=== PATIENT | male | born 1970 | race Caucasian/White ===

== ENCOUNTER → 2017-09-23 | Outpatient (CLI) | payer BC, OTHER ==
[~2017-09-23] MED LIST: ATEN25 PO; CYCL10 PO; Cialis20 MG; DICL25ER PO; Excedrin Extra1 EACH; HYDACE10B PO; HYDACE5 PO; HYDACE7.5; HYDR-86; NAPR375; NAPR500 PO; OXYACE5T PO; OXYC5 PO; PROM25 PO; PROPECIA; PSEU120ER PO; Propecia1 MG PO; RXHYDMOR2 PO; RXOXYACE PO; TAMS.4ER PO; TRAM50 PO; Valtrex1000 MG PO; ZOLP10 PO; ZOLP5 PO; [UNRECOGNIZED DRUG - OTHER] PO
[2017-09-23 14:40] LABS: Influenza A Negative (NEGATIVE); Influenza B Positive (NEGATIVE)
== END | disposition home or self-care (01) ==
LOC: LAB 13:29
PROVIDERS: Hospitalist
DX: R05 Cough (principal)
CPT/HCPCS: 87804

== ENCOUNTER → 2017-11-01 | Outpatient (CLI) | payer BC, OTHER | END | disposition home or self-care (01) | LOC: PLD 07:44 → LAB SHORT 07:44 | DX: D22.5 Melanocytic nevi of trunk (principal) | CPT/HCPCS: 88305 ==

== ENCOUNTER 2018-10-24 12:50 | Observation (INO) | payer BC, OTHER ==
[~2018-10-24] VITALS: Ht 180.3 cm; Wt 81.7 kg
[2018-10-24 13:26] LABS: PCO2 Arterial 32 mmHg (35-45); PO2 Arterial 339 mmHg (80-100); pH Blood Arterial 7.49 (7.35-7.45)
--- NOTE | 2018-10-24 18:45 | NUR ---
TELEPHONE CALL WITH POISON CONTROL. DISCUSSED VERIFYING PT HAS BEEN OFFERED HYPERBARIC TREATMENT - STILL AVAILABLE W/N 24 HRS AFTER EXPOSURE; AND RELAYED CARBOXYHEMOGLOBIN WAS 4.2. VERIFIED HYPERBARIC OFFER WITH PT; PT REP DISCUSSING WITH ER DOC/HOSPITALIST. PT DECLINED, RELAYED INFO TO POISON CONTROL.
--- NOTE | 2018-10-24 19:24 | NUR ---
SHIFT SUMMARY PT A&OX4, VSS, 15L NONREBREATHER. DENIES PAIN. DENIES N&V. EMILIA PO. AT BEDSIDE. REPORT GIVEN TO JOSE R [place].
--- NOTE | 2018-10-25 05:07 | NUR ---
NO CHANGES THIS SHIFT. REITERATED NEED TO WEAR OXYGEN SEVERAL TIMES THROUGHOUT SHIFT. PT STATES THAT HE HAS TROUBLE SLEEPING DUE TO AN OLD BACK INJURY, AND THAT SLEEPING WITH O2 ON IS UNCOMFORTABLE, BUT WAS COMPLIANT WHEN ASKED TO PLACE IT BACK ON. DENIES PAIN, DISCOMFORT, OR FURTHER NEEDS AT THIS TIME. SAFETY MEASURES IN PLACE. WILL CONTINUE TO MONITOR.
--- NOTE | 2018-10-25 06:24 | NUR ---
UPDATED PT AND SPOUSE REGUARDING TREATMENT PLAN PER THEIR REQUEST. REITERATED IMPROTANCE OF WEARING O2 ORDERED PER MD. HAND OUT GIVEN ON CARBON MONOXIED AND TREATMENT OPTIONS. VOICES UNDERSTANDING. DENIES FURTHER NEEDS OR WANT AT THIS TIME. SAFETY MEASURES IN PLACE. WILL CONTINUE TO MONITOR.
--- NOTE | 2018-10-25 08:09 | NUR ---
DR CORDOVA HERE TO SEE PT. FAMILY PRESENT.
--- NOTE | 2018-10-25 10:05 | NUR ---
PT RECENTLY DISCHARGED. PT AMBULATED OUT OF HOSPITAL PER PT REQ. CHRONIC SPECIALIST ASSISTED WITH COMPLETING DISCHARGE. PT BEEN REPORTING NO LONGER HAVING ANY DIFFICUTLY.
== END 2018-10-25 10:01 | disposition home or self-care (01) ==
LOC: ER 12:50 → SURS 12:51 → ERHOLD 12:51 → SURS 16:31
PROVIDERS: Emergency Medicine; ADMIT Internal Medicine
DX: T58.8X1A Toxic effect of carbon monoxide from other source, accidental (unintentional), initial encounter (principal); R51 Headache; G47.00 Insomnia, unspecified; M54.9 Dorsalgia, unspecified; G89.29 Other chronic pain; Z87.442 Personal history of urinary calculi; Z79.899 Other long term (current) drug therapy
CPT/HCPCS: 36600; 82375; 82803; G0378; J2405

== ENCOUNTER → 2020-05-14 | Outpatient (CLI) | payer BC, OTHER ==
[~2020-05-14] MED LIST changes: -Excedrin Extra1 EACH; +Excedrin Extra1 EACH PO; +SILD25T PO; +TRAZ100 PO; +VALACYCLOVIR1000 MG PO
== END | disposition home or self-care (01) ==
LOC: LAB SHORT 07:32 → LAB 07:32
DX: D48.5 Neoplasm of uncertain behavior of skin (principal)
CPT/HCPCS: 88305

== ENCOUNTER → 2022-12-29 | Outpatient (CLI) | payer BC, OTHER ==
[~2022-12-29] MED LIST changes: +MORP15ER PO; +OXYB5 PO; +TRAZ50 PO
== END | disposition home or self-care (01) ==
LOC: LAB SHORT 09:55 → PLD 09:55
DX: D48.5 Neoplasm of uncertain behavior of skin (principal)
CPT/HCPCS: 88305

== ENCOUNTER 2024-02-11 06:49 | Day surgery (SDC) | payer BC, OTHER ==
[~2024-02-11] VITALS: Ht 177.8 cm; Wt 76.6 kg
[~2024-02-11 06:49] MED LIST changes: +FINASTERIDE1 MG PO; +VALACYCLOVIR1000 M1 PO
[2024-02-11] MEDS ORDERED: Norco 10-325 T1 EACH (07:10)
[2024-02-11] MEDS ORDERED: CENTRUM SILVER1 EAC2 (07:10)
[2024-02-11] MEDS ORDERED: Lactated Ringer's 1,000 ML IV ONE ×2 (07:37→07:42)
[2024-02-11] MEDS ORDERED: propofoL 50 ML IV ONE (07:37)
[2024-02-11 09:14] VITALS: BP 124/86
== END 2024-02-11 09:10 | disposition home or self-care (01) ==
LOC: ORSCSDS 06:49
PROVIDERS: Surgery
PROC: 0DJD8ZZ Inspection of Lower Intestinal Tract, Via Natural or Artificial Opening Endoscopic (ICD-10-PCS; principal; 2024-02-11 08:00)
DX: Z12.11 Encounter for screening for malignant neoplasm of colon (principal); K64.8 Other hemorrhoids; Z79.899 Other long term (current) drug therapy
CPT/HCPCS: J2704; J7120